=== PATIENT | male | born 1985 | race African-American/Black ===

== ENCOUNTER 2019-04-06 18:22 | Emergency (ER) | payer OTHER, SELFPAY ==
[2019-04-06] VITALS (28 sets, daily range): BP systolic 118–142; BP diastolic 63–85; PULSE 71–95; RESP 11–27; TEMP 36.7; O2SAT 84–100
[2019-04-06] MEDS: Normal Saline 1,000 ML 1000 ML IV ×2 (18:30→19:22)
[2019-04-06] MEDS: Normal Saline Flush 10 ML SYR IVP (18:30)
--- NOTE | 2019-04-06 18:42 | ED.GENADUL_ITS ---
Discharge Plan Disposition Patient Disposition: AGAINST MEDICAL ADVICE Condition: Poor Discharge Details Chief Complaint: Nausea/Vomit/Diar Clinical Impression: Nausea & vomiting, Altered mental status, Hypokalemia, Leukocytosis Primary Care Provider: None,None ED Provider: Jocy Latif Home Meds and New Rx's Prescriptions: No Action No Known Home Meds RF: 0 Discharge Instructions Instructions: Acute Nausea and Vomiting (ED), Altered Mental Status (ED) Additional Instructions: You are leaving AGAINST MEDICAL ADVICE. It is been advised that you stay in the department for continued monitoring, activated charcoal and further intervention if needed. You may return anytime for further evaluation, monitoring and care. Please follow-up with medical care provider tomorrow. Discharge Data Discharge Date/Time-TO BE ENTERED AT DEPARTURE: 04/06/19 21:35 Medical Decision Making Patient is a 34-year-old male, brought in via EMS, after alleged ingestion of unknown substance while incarcerated and subsequent vomiting. Patient has been in custody for the past 3 weeks was just transferred to this facility this afternoon and has been in [place] since 3 PM. Prior to arrival, patient began vomiting and he was noted to have chewed up pieces of glove and allegedly the had foreign substance wrapped in a glove in his emesis. Patient became altered after this episode. Nurse reports that while he was oriented, he became slow. Patient brought in via EMS. EMS reports that he did vomit x1 in their care, brought up another plastic object, she would this and swallowed this again. On immediate presentation, patient's vital signs are within normal limits. However, the patient is repeatedly saying I am going to . He is altered and quickly appears to go to sleep when I questioned him on what he has ingested. He is able to give me other answers when asked yes/no questions such as symptom based questions. Patient remains selectively altered and selectively unresponsive. He denies chest pain, shortness of breath, abdominal pain. Is not actively nauseated. But will not address questions regarding any possible ingestions. EKG was reviewed by Dr. Larson. Patient is in a normal sinus rhythm with a rate of 81. RSR prime noted in V1. QTC is normal, [place] interval normal at 174. IV immediately obtain to obtain baseline labs and hydrate the patient. Immediately after discussing performing a straight cath on the patient to obtain a urinalysis and UDS given his altered mental state, patient woke and is feeling improved. Patient now reports I feel fine. Is requesting discharge back to correctional facility. Continues to deny any symptoms. Continues to deny ingestion of any foreign substance. He does report having used ecstasy recently but will not give me an exact timeline. Denies any drug use this evening. Denies ingestion of the rubber band substance that was visualized by correctional facility and EMS. Consult with general surgery regarding imaging and advised x-ray to evaluate for any remaining pockets. Spoke with poison control center who advised 6-hour observation and active charcoal. Labs reviewed, patient is a week and a 15. Potassium 3.2. Anion gap of 13.3. Creatinine from before. Magnesium 1.5. Patient reports that he has had similar episodes after recent hospitalization after excess ingestion. We will continue to hydrate patient and will replace potassium and magnesium. Consulted poison control advise giving the patient activated charcoal and monitoring him for the next 6 hours. Advised if any changes are noted to contact them and potentially give patient GoLYTELY. Patient initially adamantly refused to give a urine sample. However, after receiving IV hydration, he did give sample. UDS positive for cocaine and THC. Discussed the recommendations of activated charcoal with the patient. However, he refuses. We did discuss the risks associated with this and he continues to insist that there is nothing left and refused the medication despite medical recommendation. Is also requesting discharge. Discussed discharge with correctional officers with him. Patient has capacity to refuse care. They did check with the rules and regulations of the facility and patient will be discharged back to the correctional facility. Patient is well aware of the risks. He continues to request discharge. Patient left AGAINST MEDICAL ADVICE. He is aware that he may return anytime with new or worsening symptoms. Patient will be closely monitored. HPI General Mode of arrival: EMS . Date/Time Provider Initiated Documentation: 04/06/19 18:28 . Limitations to Documentation: altered mental status . Information obtained by: RN/ (RN at correctional institution called ahead of patient arrival), EMS and RN notes reviewed . HPI Narrative: Patient is a 34-year-old incarcerated male, presenting via EMS, after vomiting a small rubber pouches and having altered mental status at correctional facility. Were contacted by nursing staff who advised that the patient had vomited a number of times this afternoon and that there was a number of what appeared to be glove fingers tips rolled into balls full of unknown substance. EMS then reports that the patient did bring another 1 of these up but she would not swallowed it prior to it coming out of his mouth. EMS reports that he was intermittently/selectively responsive and will not admit to or reveal what he allegedly ingested. Patient is not able to answer my questions initial presentation. Patient repeats I am going to . Related Data Home Medications Medication Instructions Recorded Confirmed Unknown [No Known Home Meds] 04/06/19 04/06/19 Allergies Allergy/AdvReac Type Severity Reaction Status Date / Time No Known Allergies Allergy Unverified 04/06/19 21:04 Review of Systems Unobtainable due to mental status Neurologic Neurologic: Reports as per [facility] Social History Smoking/Tobacco Use Status: Former Tobacco Use Substance use type: marijuana and other Do you feel safe at home: Yes Exam Const General: ill appearing acutely, intoxicated appearing and lethargic Nutritional Appearance: average body habitus and well nourished Orientation: not alert and awake (Arousable and intermittently answering questions) HENMT Head: normal to inspection Mouth: moist mucous membranes Eyes Alignment and Position: alignment normal and position normal Periorbital: periorbital findings normal Eyelids: eyelids normal Conjunctivae: conjunctivae normal Sclera: sclerae normal Cornea: corneas normal Pupils: pinpoint bilaterally EOM: EOM intact bilaterally Resp Effort & Inspection: normal respiratory effort, able to speak in complete sentences and no respiratory distress Auscultation: clear to auscultation bilaterally, no rales, no rhonchi and no wheezes Cardio Rate: regular rate Rhythm: regular rhythm Heart Sounds: S1 normal and S2 normal GI Inspection: normal to inspection, no edema and non-distended Palpation: soft, no hepatosplenomegaly, not firm, no hernias, no masses, not rigid and nontender Percussion: normal to percussion Auscultation: normal bowel sounds Back/Spine/Pelvis Back: no CVA tenderness Skin General skin exam: no rashes or lesions noted Trauma: no lacerations or abrasions Neuro General: alert and awake Cognition: abnormal cognition Speech: abnormal speech slurred Motor: muscle tone normal throughout (moving all extremities) Psych Appearance: disheveled Speech and Movement: speech not clear and restless
[2019-04-06 18:47] LABS: Abs Immature Grans 0.04 k/cumm (0.0-0.09); Absolute Basophil Count 0.02 k/cumm (0.0-0.2); Absolute Eosinophil Count 0.18 k/cumm (0.0-0.7); Absolute Monocyte Count 0.81 k/cumm (0.11-0.7); Absolute Neutrophil Count 12.53 k/cumm (1.2-6.7); Basophils % 0.1; Eosinophils % 1.2; HCT 45.5 % (40.0-50.0); HGB 16.2 g/dL (13.5-17.5); Immature Grans % 0.3; Lymphocytes % 9.5; Mean Corp. HGB Concentration 35.6 g/dL (32.0-36.0); Mean Corpuscular Hemoglobin 30.9 pg (27.0-33.0); Mean Corpuscular Volume 86.7 fL (80-95); Mean Platelet Volume 9.8 fL (8.0-11.0); Monocytes % 5.4; Neutrophils % 83.5; Platelet Count 209 x1000/uL (130-400); RBC 5.25 m/cumm (4.50-6.00); RBC Distribution Width 12.5 % (11.8-14.1)
[2019-04-06 18:54] LABS: Absolute Lymphocyte Count 1.43 k/cumm (1.2-3.4)
--- NOTE | 2019-04-06 19:09 | NUR.NOTE ---
Nursing Note: Patient sitting up in bed, states he feels fine now. Denies further nausea or vomiting. Patient states he is unable to urinate.
[2019-04-06 19:12] LABS: ALT 22 U/L (16-63); AST 15 U/L (15-37); Albumin 4.4 g/dL (3.4-5.0); Alkaline Phosphatase 62 U/L (46-116); Anion Gap 13.3 mmol/L (3-11); BUN 10 mg/dL (7-18); Bilirubin, Total 0.5 mg/dL (0.2-1.0); CO2 23.7 mmol/L (21.0-32.0); CREATININE 1.41 mg/dL (0.70-1.30); Calcium 9.6 mg/dL (8.5-10.1); Chloride 102 mmol/L (98-107); Estimated GFR 57.89 (mL/min/1.73m2); Glucose 181 mg/dL (74-106); Magnesium 1.5 mg/dL (1.8-2.4); Potassium 3.2 mmol/L (3.5-5.1); Sodium 139 mmol/L (136-145); TSH 1.62 uIU/mL (0.36-3.74)
[2019-04-06 19:13] LABS: Troponin I < 0.05 ng/Ml (<0.06)
--- NOTE | 2019-04-06 19:37 | NUR.NOTE ---
Nursing Note: urine sent to lab
[2019-04-06 19:44] LABS: Bilirubin Negative (Negative); Blood Trace-intact (Negative); Clarity Clear (Clear); Glucose Negative (Negative); Ketones 15 mg/dL (Negative); Leukocyte Esterase Negative (Negative); Nitrite Negative (Negative); pH 8.5 (5-8)
[2019-04-06 19:57] LABS: *AMPHETAMINES SCREEN URINE Negative (Negative); *BARBITURATES SCREEN URINE Negative (Negative); *BENZODIAZEPINES SCREEN URINE Negative (Negative); Cannabinoids THC POSITIVE (Negative); Cocaine Screen,Urine POSITIVE (Negative); METHADONE URINE SCREEN Negative (Negative); OPIATES URINE SCREEN Negative (Negative)
--- NOTE | 2019-04-06 19:57 | NUR.NOTE ---
Nursing Note: Patient requesting drink of water. Explained that he could not have anything to drink until after abd xrat complete.
[2019-04-06 19:58] LABS: Tricyclic Antidepressants Negative (Negative)
[2019-04-06 20:07] LABS: Bacteria Negative HPF (Negative); C & S Indicated? No; Casts Negative LPF (Negative); Crystals Moderate Amorphous HPF (Negative); Epithelial Cells Negative HPF (Negative); Mucus Negative (Negative); Other Cells Negative (Negative); WBC 0-2 HPF (0-5)
--- NOTE | 2019-04-06 20:07 | NUR.NOTE ---
Nursing Note: Radiology at bedside.
--- NOTE | 2019-04-06 20:13 | NUR.NOTE ---
Nursing Note: Water and warm blanket provided for patient.
--- NOTE | 2019-04-06 20:14 | DI.RAD_ITS ---
EXAM: XR PORTABLE CHEST AP INDICATION: body packing, recent vomiting of small rubber ball. COMPARISON: No exams were available for comparison TECHNIQUE: 2D digital imaging was performed. FINDINGS: Heart size and pulmonary vasculature are within normal limits. The lungs are clear. No pleural effusion or pneumothorax is identified. The bones are unremarkable. No radiopaque foreign bodies are identified. IMPRESSION: No acute pulmonary process.
--- NOTE | 2019-04-06 20:35 | DI.RAD_ITS ---
EXAM: XR ABDOMEN FLAT PLATE INDICATION: body packing. COMPARISON: No exams were available for comparison TECHNIQUE: 2D digital imaging was performed. FINDINGS: The bowel gas pattern is nonspecific. No evidence of bowel obstruction is seen. The bones are intact . No radiopaque foreign bodies are present. IMPRESSION: No radiopaque foreign body is seen.
--- NOTE | 2019-04-06 20:43 | DI.VRAD_ITS ---
PROCEDURE INFORMATION: Exam: XR Chest, 1 View Exam date and time: 04/06/2019 20:12 Age: 34 years old Clinical history: Other: Recent vomiting of small rubber ball, body packing TECHNIQUE: Imaging protocol: XR of the chest Views: 1 view. COMPARISON: No relevant prior studies available. FINDINGS: Lungs: No consolidation. Pleural space: No significant pleural effusion. No pneumothorax. Heart/Mediastinum: No cardiomegaly. Bones/joints: No acute fracture. Soft tissues: No radiopaque foreign body is seen. IMPRESSION: Negative portable chest. Dictated and Authenticated by: Joleen Bertrand MD. Ordering:REMY Sandra MD
--- NOTE | 2019-04-06 20:44 | DI.VRAD_ITS ---
PROCEDURE INFORMATION: Exam: XR Abdomen, 1 View Exam date and time: 04/06/2019 20:12 Age: 34 years old Clinical history: Other: Body packing, ? foreign body TECHNIQUE: Imaging protocol: XR of the abdomen. Views: Frontal supine view of the abdomen. 1 View. COMPARISON: No relevant prior studies available. FINDINGS: Gastrointestinal tract: No bowel dilation. Bones/joints: Unremarkable. Soft tissues: No radiopaque foreign body is seen. IMPRESSION: No radiopaque foreign body is seen. Dictated and Authenticated by: Joleen Bertrand MD. Ordering:REMY Sandra MD
--- NOTE | 2019-04-06 20:51 | NUR.NOTE ---
Nursing Note: Patient remains alert and oriented. Waiting all test results.
[2019-04-06] MEDS: POTASSIUM CHLORIDE 20 MEQ, POTASSIUM CHLORIDE 10 MEQ 30 MEQ PO (21:08)
--- NOTE | 2019-04-06 22:13 | NUR.NOTE ---
Nursing Note: 220: Report called to Agueda Mccloud ([phone])
== END 2019-04-06 21:35 | disposition left against medical advice (07) ==
PROVIDERS: Emergency Provider Physician Assistant
DX: T18.9XXA Foreign body of alimentary tract, part unspecified, initial encounter (principal); R11.2 Nausea with vomiting, unspecified; R41.82 Altered mental status, unspecified; E87.6 Hypokalemia; D72.829 Elevated white blood cell count, unspecified; Z53.29 Procedure and treatment not carried out because of patient's decision for other reasons
CPT/HCPCS: 36415; 80053; 80307; 93005; 96360; 96361; 99285; 71045; 74018; 81003; 81015; 83735; 84443; 84484; 85025; 93010